=== PATIENT | male | born 1980 | race Caucasian/White ===

== ENCOUNTER 2017-05-10 16:12 | Emergency (ER) | payer SELFPAY ==
[2017-05-10] MEDS ORDERED: Take Home: Amoxicillin 875 MG Tab, 2 Tab Pack PO ONE (17:11)
--- NOTE | 2017-05-11 20:48 | EDM.PDOC ---
ED HPI GENERAL MEDICAL PROBLEM - General Chief Complaint: ENT Problem Stated Complaint: POSS STREP Time Seen by Provider: 05/10/17 16:45 Source of Information: Reports: Patient History Limitations: Reports: No Limitations - History of Present Illness INITIAL COMMENTS - FREE TEXT/NARRATIVE: Pt. presents to ER with complaints of severe sore throat and headache. He states that he feels chilled. Denies any cough or chest congestion. No sinus congestion. He states that hes not experiencing any nausea, vomiting or diarrhea. He states that several of his family members have similar symptoms. Denies any chest pain or shortness of breath. Duration: Day(s): (3) Throat Pain Score (Numeric/FACES): 6 - Related Data Allergies Allergy/AdvReac Type Severity Reaction Status Date / Time No Known Allergies Allergy Verified 05/10/17 16:48 Home Meds: Home Meds . [No Known Home Meds] 05/10/17 [History] ED ROS ENT - Review of Systems Review Of Systems: See Below Constitutional: Reports: Chills, Malaise, Weakness, Fatigue, Decreased Appetite HEENT: Reports: Throat Pain Respiratory: Reports: No Symptoms Cardiovascular: Reports: No Symptoms Endocrine: Reports: No Symptoms GI/Abdominal: Reports: No Symptoms : Reports: No Symptoms Musculoskeletal: Reports: No Symptoms Skin: Reports: No Symptoms Neurological: Reports: No Symptoms Psychiatric: Reports: No Symptoms Hematologic/Lymphatic: Reports: No Symptoms Immunologic: Reports: No Symptoms ED EXAM, ENT - Physical Exam Exam: See Below Exam Limited By: No Limitations General Appearance: Alert, WD/WN, No Apparent Distress Eye Exam: Bilateral Eye: EOMI, Normal Fundi, Normal Inspection, PERRL Ears: Normal External Exam, Normal Canal, Hearing Grossly Normal, Normal TMs Nose: Normal Inspection, Normal Mucousa, No Blood Mouth/Throat: Normal Inspection, Normal Gums, Normal Lips, Normal Oropharynx, Normal Teeth Head: Atraumatic, Normocephalic Neck: Normal Inspection, Supple, Non-Tender, Full Range of Motion Respiratory/Chest: No Respiratory Distress, Lungs Clear, Normal Breath Sounds, No Accessory Muscle Use, Chest Non-Tender Cardiovascular: Normal Peripheral Pulses, Regular Rate, Rhythm, No Edema, No Gallop, No JVD, No Murmur, No Rub GI/Abdominal: Normal Bowel Sounds, Soft, Non-Tender, No Organomegaly, No Distention, No Abnormal Bruit, No Mass, Pelvis Stable Back: Normal Inspection, Full Range of Motion Extremities: Normal Inspection, Normal Range of Motion, Non-Tender, No Pedal Edema, Normal Capillary Refill Neurological: Alert, Oriented, CN II-XII Intact, Normal Cognition, Normal Gait, Normal Reflexes, No Motor/Sensory Deficits Psychiatric: Normal Affect, Normal Mood Skin: Warm, Dry, Intact, Normal Color, No Rash Lymphatic: No Adenopathy Course - Vital Signs Last Recorded V/S: Last Vital Signs Temp 36.7 C 05/10/17 16:44 Pulse 100 05/10/17 16:44 Resp 18 05/10/17 16:44 BP 145/100 H 05/10/17 16:44 Pulse Ox 96 05/10/17 16:44 - Orders/Labs/Meds Orders: rapid strep + for group A strep Meds: Medications Discontinued Medications Generic Name Dose Route Start Last Admin Trade Name Juana PRN Reason Stop Dose Admin Amoxicillin 2 packet 05/10/17 17:11 05/10/17 17:29 Take Home: Amoxicillin 875 Mg Tab, 2 Tab Pack PO 05/10/17 17:12 2 packet ONETIME ONE Administration Departure - Departure Time of Disposition: 17:34 Disposition: Home, Self-Care 01 Condition: Good Clinical Impression: Pharyngitis, Strep pharyngitis - Discharge Information Instructions: Amoxicillin capsules or tablets, Strep Throat, [id number] Referrals: PCP,None [Primary Care Provider] - Forms: ED Department Discharge Additional Instructions: amoxicillin 875mg twice daily for 10 days Ibuprofen 800mg every 8 hours Drink plenty of fluids Off work/away from hospitals until 24 hours after your last fever.
== END 2017-05-10 17:41 | disposition home or self-care (01) ==
LOC: VM.ED 16:12
DX: J02.0 Streptococcal pharyngitis (principal)
CPT/HCPCS: 87880; 99283; A9270

== ENCOUNTER 2020-05-14 01:15 | Emergency (ER) | payer BC ==
[2020-05-14] MEDS ORDERED: Ketorolac 60 MG/2 ML SDV IM ONE (01:34)
[2020-05-14] MEDS ORDERED: Methocarbamol 500 MG Tab PO ONE (01:35)
--- NOTE | 2020-05-14 01:41 | EDM.PDOC ---
ED HPI GENERAL MEDICAL PROBLEM - General Chief Complaint: Neck Problem Stated Complaint: neck pain Time Seen by Provider: 05/14/20 01:20 Source of Information: Reports: Patient History Limitations: Reports: No Limitations - History of Present Illness INITIAL COMMENTS - FREE TEXT/NARRATIVE: Patient states since he got up this morning about 930 he has had a constantly stiff neck but describes as a dull pressure at the base of his neck and both sides of his shoulder. Describes it about a 6 out of 10 pain. He states he cannot really turn his head left or right but has no problems with it moving up or down. He denies any headache or vision changes no fever chills states he did test positive for Covid 2 weeks ago but no symptoms in the last week or so. He denies any sick contacts and states he has been feeling fine up until this morning. States he has ate and drink normally today with no issues Duration: Hour(s): Quality: Reports: Ache, Pressure Severity: Moderate Improves with: Reports: Medication Worsens with: Reports: Movement Associated Symptoms: Reports: No Other Symptoms. 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 [No Known Home Meds] 05/10/17 [History] Past Medical History - Past Health History Medical/Surgical History: Denies Medical/Surgical History Social & Family History - Tobacco Use Tobacco Use Status *Q: Current Every Day Tobacco User Years of Tobacco use: 15 Packs/Tins Daily: 0.5 - Recreational Drug Use Recreational Drug Use: No ED ROS GENERAL - Review of Systems Review Of Systems: See Below Constitutional: Reports: No Symptoms HEENT: Reports: No Symptoms Respiratory: Reports: No Symptoms Cardiovascular: Reports: No Symptoms Endocrine: Reports: No Symptoms GI/Abdominal: Reports: No Symptoms : Reports: No Symptoms Musculoskeletal: Reports: Neck Pain Skin: Reports: No Symptoms Neurological: Reports: No Symptoms Hematologic/Lymphatic: Reports: No Symptoms Immunologic: Reports: No Symptoms ED EXAM, UPPER BACK/NECK PAIN - Physical Exam Exam: See Below Exam Limited By: No Limitations General Appearance: Alert, WD/WN, No Apparent Distress Eye Exam: Bilateral Eye: EOMI, PERRL Ears Exam: Normal External Exam, Normal Canal, Hearing Grossly Normal, Normal TMs, Other (Left ear cerumen impaction) Nose Exam: Normal Inspection, Normal Mucousa, No Blood Throat/Mouth Exam: Normal Inspection, Normal Lips, Normal Teeth, Normal Gums, Normal Oropharynx, Normal Voice, No Airway Compromise Head Exam: Atraumatic, Normocephalic. No: Facial Tenderness Neck Exam: Normal Inspection, Other (Patient has tenderness palpation over bilateral SCM area with deep palpation patient states pain does get a little worse he has limited rotation laterally but has full range of motion with flexion and extension there is no nuchal signs or symptoms). 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 No: Disoriented x 3 Psychiatric: Normal Affect, Normal Mood Skin Exam: Normal Color, Warm/Dry Lymphatic: No Adenopathy, Other (No anterior posterior cervical adenopathy appreciated) Course - Vital Signs Text/Narrative:: Toradol 60 mg IM 1000 mg Robaxin p.o. Patient states he does not wish to have any medications take home secondary to he has at work but states he will continue to take Tylenol ibuprofen ice and heat as directed And is okay with following up outpatient in the next 24 to 48 hours Last Recorded V/S: Last Vital Signs Temp 36.7 C 05/14/20 01:50 Pulse 88 05/14/20 01:50 Resp 16 05/14/20 01:50 BP 144/93 H 05/14/20 01:50 Pulse Ox 98 05/14/20 01:50 - Orders/Labs/Meds Meds: Medications Discontinued Medications Generic Name Dose Route Start Last Admin Trade Name Juana PRN Reason Stop Dose Admin Ketorolac Tromethamine 60 mg 05/14/20 01:34 05/14/20 01:43 Toradol IM 05/14/20 01:35 60 mg ONETIME ONE Administration Methocarbamol 1,000 mg 05/14/20 01:35 05/14/20 01:43 Robaxin PO 05/14/20 01:36 1,000 mg ONETIME ONE Administration Departure - Departure Time of Disposition: 01:40 Disposition: Home, Self-Care 01 Condition: Good Clinical Impression: Neck pain - Discharge Information *PRESCRIPTION DRUG MONITORING PROGRAM REVIEWED*: Not Applicable *COPY OF PRESCRIPTION DRUG MONITORING REPORT IN PATIENT CY: Not Applicable Referrals: PCP,Unobtain [Primary Care Provider] - Forms: ED Department Discharge Additional Instructions: Your diagnosis is neck pain Follow-up with a primary care provider in the next 24 to 48 hours or return to the emergency room if anything changes or gets worse You may take Tylenol 500 mg 1 to 2 tablets every 4-6 hours as needed you may continue to take ibuprofen 600 mg every 8 hours as needed you may apply ice and heat to the area whichever is most comfortable Sepsis Event Note (ED) - Evaluation Sepsis Screening Result: No Definite Risk - Focused Exam Vital Signs: Vital Signs Temp Pulse Resp BP Pulse Ox 05/14/20 01:50 36.7 C 88 16 144/93 H 98 05/14/20 01:21 36.2 C 98 16 129/84 98 - Problem List & Annotations (1) Neck pain SNOMED Code(s): 78087303 Code(s): M54.2 - CERVICALGIA Status: Acute
== END 2020-05-14 01:50 | disposition home or self-care (01) ==
LOC: VM.ED 01:15
DX: M54.2 Cervicalgia (principal); F17.210 Nicotine dependence, cigarettes, uncomplicated
CPT/HCPCS: 96372; 99283; A9270-GY; J1885

== ENCOUNTER 2022-04-09 16:51 | Emergency (ER) | payer BC ==
[2022-04-09 17:48] LABS: CHLORIDE,CL 102 mmol/L (98-107); SODIUM,NA 139 mmol/L (136-145)
[2022-04-09 17:50] LABS: ESTIMATED GFR 88 mL/min (>=60)
[2022-04-09] MEDS ORDERED: Magnesium Citrate Solution 296 ML Bottle PO ONE (17:57)
[2022-04-09] MEDS: Bisacodyl 10 MG Supp RECTAL ONE (18:07)
== END 2022-04-09 18:12 | disposition home or self-care (01) ==
LOC: VM.ED 16:51
DX: K59.00 Constipation, unspecified (principal)
CPT/HCPCS: 36415; 74019; 80053; 81003; 82150; 83690; 85025; 86140; 99284; A9270-GY